=== PATIENT | female | born 1970 | race Caucasian/White ===

== ENCOUNTER 2025-08-24 07:39 | Emergency (ER) | payer OTHER ==
[~2025-08-24] VITALS: Ht 157.5 cm; Wt 64.0 kg
[2025-08-24 07:48] VITALS: O2SAT 100
[2025-08-24] MEDS ORDERED: AMOX1TAB16 MT (09:32)
[2025-08-24 09:41] VITALS: BP 122/81; PULSE 96; RESP 15; TEMP 36.7; O2SAT 100
== END 2025-08-24 09:46 | disposition home or self-care (01) ==
LOC: ER 07:39
DX: N76.2 Acute vulvitis (principal); L03.90 Cellulitis, unspecified
CPT/HCPCS: 99283